=== PATIENT | female | born 2005 | race Caucasian/White ===

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

== ENCOUNTER 2024-05-08 18:33 | Emergency (ER) | payer OTHER, SELFPAY ==
--- NOTE | ~2024-05-08 | XR_ITS ---
EXAMINATION: XR foot RT min 3V DATE: 05/08/2024 20:20 INDICATION: Right fifth toe pain TECHNIQUE: Dorsoplantar, two oblique and lateral views of the right foot were obtained. COMPARISON: None. FINDINGS: transverse extra articular fracture across the proximal metaphyseal region of the right fifth proxima l phalanx with one cortical width dorsal/medial displacement and mild lateral angulation. Alignment i s otherwise normal. No other fractures identified. Joint spaces are normal. IMPRESSION: 1. Extra articular fracture across the base of the right fifth proximal phalanx with mild displacemen t and angulation. Reviewed, dictated and finalized at location A. IMPRESSION: 1. Extra articular fracture across the base of the right fifth proximal phalanx with mild displacement and angulation.
[2024-05-08 18:37] VITALS: BP 129/84; PULSE 115; RESP 16; TEMP 36.9; O2SAT 100
--- NOTE | 2024-05-08 20:17 | ED.LOWEXIN ---
HPI - Extremity Injury (Lower) General Chief Complaint: Extremity Injury, Lower Stated Complaint: R. foot injury Time Seen by Provider: 05/08/24 20:03 Source: patient Mode of arrival: ambulatory Limitations: no limitations History of Present Illness HPI Narrative: this is a 18-year-old female who presents to the ED for chief complaint of right foot injury that occurred around 13 30 today. Patient states that she was water tubing with a friend when this injury occurred. she believes that she GM to the foot/right 5th toe on the person she was with. took a leave at 2:00 p.m. with mild relief but continues to have significant pain with ambulation. Reports bruising. Denies numbness, weakness or any further sites of pain or injury. Related Data Allergies Allergy/AdvReac Type Severity Reaction Status Date / Time Penicillins Allergy Rash Verified 05/08/24 20:51 Review of Systems Review of Systems: All systems as dictated in HPI Exam Narrative: GENERAL: Well-appearing, well-nourished, and in no acute distress. MSK: Mild tenderness to the right 5th toe and distal lateral right foot. SKIN: Bruising present to the right 5th toe. Warm, dry, no rash. NEURO: Alert and oriented x4. No focal deficits. PSYCH: Normal mood and affect. Course Vital Signs Vital signs: Vital Signs Temperature 98.5 F 05/08/24 18:37 Pulse Rate 115 H 05/08/24 18:37 Respiratory Rate 16 05/08/24 18:37 Blood Pressure 129/84 05/08/24 18:37 Pulse Oximetry 100 05/08/24 18:37 Oxygen Delivery Room Air 05/08/24 18:37 Temperature 98.5 F 05/08/24 18:37 Pulse Rate 115 H 05/08/24 18:37 Respiratory Rate 16 05/08/24 18:37 Blood Pressure 129/84 05/08/24 18:37 Pulse Oximetry 100 05/08/24 18:37 Oxygen Delivery Room Air 05/08/24 18:37 MDM - Extremity Injury (Lower) MDM Narrative Medical decision making narrative: This is a 18-year-old female who presents to the ED for chief complaint of right 5th toe injury today. Vitals are normal. Exam remarkable for the above bruising to the right 5th toe. X-rays of the right foot show acute extra-articular fracture across the base of the right 5th proximal phalanx with mild displacement and angulation. Patient was placed and postop shoe. She will begin Rx for Toradol. Encouraged follow-up with PCP on this issue. Pt will be discharged in stable condition. Return precautions given and supportive measures discussed. Pt is understanding and agreeable with plan for discharge and follow-up with PCP. Discharge Plan Discharge Clinical Impression: Fracture of fifth toe, right, closed Patient Disposition: Home, Self-Care Condition: Stable Instructions: Antibiotic Form Additional Instructions: your exam and imaging today show fracture of the pinky toe. please continue to use postop shoe for comfort. short course of Toradol has been prescribed for pain relief. Do not take any other NSAIDs with Toradol. You can take Tylenol with Toradol. If you have any new or worsening symptoms please return to the ER for further evaluation. Prescriptions: New ketorolac 10 mg tablet 10 mg PO Q8H PRN (Reason: pain) Qty: 15 0RF Rx Instructions: maximum total duration of 5 days from all oral, intranasal, or parenteral formulations Follow-up/Referrals: Barrett,MD Jenn [Primary Care Provider] - Time of Disposition: 20:53
[2024-05-08] MEDS: IBUPROFEN 400 MG TABLET 800 MG PO (20:52)
[2024-05-08] MEDS: ACETAMINOPHEN 500 MG TABLET 1000 MG PO (20:52)
[2024-05-08 21:45] VITALS: BP 118/76; PULSE 98; RESP 18; O2SAT 99
== END 2024-05-08 21:46 | disposition home or self-care (01) ==
PROVIDERS: Emergency Provider Physician Assistant; PCP Pediatrics
DX: S92.511A Displaced fracture of proximal phalanx of right lesser toe(s), initial encounter for closed fracture (principal); X58.XXXA Exposure to other specified factors, initial encounter; Y93.16 Activity, rowing, canoeing, kayaking, rafting and tubing
CPT/HCPCS: 73630; 99284; A9270